=== PATIENT | female | born 1965 | race Two or more races ===

== ENCOUNTER 2022-11-08 08:15 | Inpatient (IN) | payer OTHER ==
[~2022-11-08] VITALS: Ht 154.9 cm; Wt 87.5 kg
[2022-11-08] MEDS ORDERED: ZESTRIL5 MG PO (09:15)
[2022-11-08] MEDS ORDERED: SYNTHROID88 MCG PO (09:15)
[2022-11-08] MEDS ORDERED: TOPROL XL25 M1 PO (09:15)
[2022-11-08] MEDS ORDERED: SIMVA PO (09:16)
[2022-11-08] MEDS ORDERED: GABAPEN PO (09:16)
[2022-12-05] MEDS ORDERED: GABAPENTIN100 M2 (08:03)
[2022-12-05] MEDS ORDERED: ATORVASTATIN CA40 MG (08:03)
[2022-12-05] MEDS ORDERED: HYDROCHLOROTH12.5 MG (08:04)
[2022-12-05] MEDS ORDERED: SIMVASTATIN40 MG (08:05)
[2022-12-06] MEDS ORDERED: INTEGRA PLUS C1 EACH PO (07:47)
[2022-12-06] MEDS ORDERED: OXYC1TAB9 PO (07:47)
[2022-12-06] MEDS ORDERED: BACTRIM DS TAB1 EACH PO (07:47)
[2022-12-06] MEDS ORDERED: XARELTO10 MG PO (07:47)
== END 2022-12-06 13:29 | DRG 470 ==
LOC: SURG 11-11 08:15 → SURH 12-04 08:09 → O/R 12-04 08:09 → SURH 12-04 15:32 → O/R 12-05 14:41 → SURH 12-05 14:43
PROVIDERS: ADMIT Orthopaedic Surgery Sports Medicine; ATTEND Orthopaedic Surgery Sports Medicine
PROC: 0SRD0J9 Replacement of Left Knee Joint with Synthetic Substitute, Cemented, Open Approach (ICD-10-PCS; principal; 2022-12-04 10:45)
DX: M17.12 Unilateral primary osteoarthritis, left knee (principal); I10 Essential (primary) hypertension; E03.9 Hypothyroidism, unspecified; E78.5 Hyperlipidemia, unspecified; Z96.652 Presence of left artificial knee joint